=== PATIENT | female | born 1965 | race American Indian/Alaskan Native ===

== ENCOUNTER 2016-12-22 14:13 | Outpatient (CLI) | payer OTHER ==
--- NOTE | 2016-12-23 10:41 | Mammography Report ---
BILATERAL DIGITAL SCREENING MAMMOGRAM with CAD: 12/22/16 14:13:00 CLINICAL: Routine screening. COMPARISON:12/18/15 FINDINGS: The breasts are heterogeneously dense, which may obscure small masses. No mass, architectural distortion or suspicious calcifications. IMPRESSION: No mammographic evidence of malignancy. BI-RADS CATEGORY: 1 - - Negative RECOMMENDATION: Routine mammographic screening in one year. COMMENT: Patient follow-up letters are generated by our [employer] application.
== END 2016-12-22 14:14 | disposition home or self-care (01) ==
LOC: SPVWC 14:13
PROVIDERS: ATTEND Obstetrics & Gynecology
DX: Z12.31 Encounter for screening mammogram for malignant neoplasm of breast (principal)
CPT/HCPCS: 77067; G0202

== ENCOUNTER 2019-02-01 12:50 | Outpatient (CLI) | payer OTHER ==
--- NOTE | 2019-02-02 08:19 | Mammography Report ---
DIGITAL SCREENING MAMMOGRAM WITH CAD, 02/01/2019 INDICATION: Routine screening mammography. TECHNIQUE: Digital bilateral 2D mammography was obtained in the craniocaudal and mediolateral obliq ue projections. This examination was interpreted with the benefit of Computer-Aided Detection analysi s. COMPARISON: 12/29/2017 FINDINGS: Breast Density: There are scattered areas of fibroglandular density. There is no evidence of dominant mass, suspicious calcifications or architectural distortion in eithe r breast. IMPRESSION: No mammographic evidence of malignancy. Follow up recommendation: Routine yearly BI-RADS Category 1: Negative. A "normal" or negative report should not discourage follow up or biopsy of a clinically significant f inding. A written summary of these findings will be mailed to the patient. The patient will be entered into a mammography reporting system which will generate a reminder letter for the patient's next appointmen t at the appropriate interval. The [employer] recommends yearly mammograms starting at age 40 and continuing as l samatnha as a woman is in good health. Breast MRI is recommended for women with an approximate 20-25% or greater lifetime risk of breast cancer, including women with a strong family history of breast or ova jorge luis cancer or who have been treated for Hodgkin's disease. Signer Name: Az Alanis MD Signed: 02/02/2019 8:15 AM Workstation Name: [id number]
== END 2019-02-01 12:51 | disposition home or self-care (01) ==
LOC: SPVWC 12:50
PROVIDERS: ATTEND Obstetrics & Gynecology
DX: Z12.31 Encounter for screening mammogram for malignant neoplasm of breast (principal)
CPT/HCPCS: 77067

== ENCOUNTER 2020-01-11 15:04 | Outpatient (CLI) | payer OTHER ==
--- NOTE | 2020-01-11 16:55 | XRay Report ---
CHEST 2 VIEWS INDICATION / CLINICAL INFORMATION: SHORTNESS OF BREATH R06.02. COMPARISON: None available. FINDINGS: SUPPORT DEVICES: None. HEART / MEDIASTINUM: No significant abnormality. LUNGS / PLEURA: No significant pulmonary or pleural abnormality. No pneumothorax. ADDITIONAL FINDINGS: No significant additional findings. IMPRESSION: 1. No acute findings. Signer Name: Rahul Arshad MD Signed: 01/11/2020 4:51 PM Workstation Name: [id number]
== END 2020-01-11 15:05 | disposition home or self-care (01) ==
LOC: SPVIMAG 15:04
PROVIDERS: ATTEND Internal Medicine
DX: R06.02 Shortness of breath (principal)
CPT/HCPCS: 71046

== ENCOUNTER 2021-01-14 08:40 | Outpatient (CLI) | payer OTHER ==
--- NOTE | 2021-01-14 10:23 | Mammography Report ---
DIGITAL SCREENING MAMMOGRAM WITH CAD, 01/14/2021 CLINICAL INFORMATION / INDICATION: Routine screening mammography. SCREENING MAMMO TECHNIQUE: Digital bilateral 2D mammography was obtained in the craniocaudal and mediolateral obliqu e projections. This examination was interpreted with the benefit of Computer-Aided Detection analysis . COMPARISON: 02/01/2019, 12/29/2017, 12/22/2016 FINDINGS: Breast Density: There are scattered areas of fibroglandular density. No dominant mass, suspicious calcifications, or architectural distortion in either breast. IMPRESSION: No mammographic evidence of malignancy. Follow up recommendation: Routine yearly BI-RADS Category 1: Negative. A "normal" or negative report should not discourage follow up or biopsy of a clinically significant f inding. A written summary of these findings will be mailed to the patient. The patient will be entered into a mammography reporting system which will generate a reminder letter for the patient's next appointmen t at the appropriate interval. The [employer] recommends yearly mammograms starting at age 40 and continuing as l samantha as a woman is in good health. Breast MRI is recommended for women with an approximate 20-25% or greater lifetime risk of breast cancer, including women with a strong family history of breast or ova jorge luis cancer or who have been treated for Hodgkin's disease. Signer Name: Sd Ceron DO Signed: 01/14/2021 10:19 AM Workstation Name: [id number]
== END 2021-01-14 08:41 | disposition home or self-care (01) ==
LOC: SPVWC 08:40
PROVIDERS: ATTEND Internal Medicine
DX: Z12.31 Encounter for screening mammogram for malignant neoplasm of breast (principal)
CPT/HCPCS: 77067